=== PATIENT | male | born 1985 | race Caucasian/White ===

== ENCOUNTER 2020-12-03 13:02 | Emergency (ER) | payer SELFPAY ==
--- NOTE | 2020-12-03 14:36 | RAD REPORT ---
EXAM DESCRIPTION: RAD - Chest Single View - 12/03/2020 2:11 pm CLINICAL HISTORY: SOB COMPARISON: None TECHNIQUE: AP portable chest image was obtained 12/03/2020 2:11 pm . FINDINGS: No mass or consolidation identifiable. Interstitial markings are mildly prominent with the baseline for the patient is unknown. A mild interstitial edema or infiltrate cannot be excluded. The re are no COVID-19 specific findings. Heart and vasculature are normal. No measurable pleural effusion and no pneumothorax. No acute bony abnormality seen. No acute aortic findings suspected. IMPRESSION: Baseline examination showing no mass or consolidation. No COVID-19 specific chest findin gs. Interstitial markings are mildly prominent but could be simply baseline for the patient. A mild inter stitial edema or infiltrate cannot be excluded.
--- NOTE | 2020-12-03 16:06 | EDPHYS ---
Physician Documentation [facility] Name: Benjamín Navas Age: 35 yrs Sex: Male : 1985 Arrival Date: 12/03/2020 Time: 13:05 Bed Waiting Private MD: ED Physician Moose Grady Historical: - Allergies: 12/03 13:33 No Known Allergies; ss - Home Meds: 13:33 None [Active]; ss - PMHx: 13:33 None; ss - PSHx: 13:33 None; ss - Immunization history:: Client reports having NOT received the Covid vaccine. - Social history:: Smoking status: Patient denies any tobacco usage or history of. Vital Signs: 13:31 BP 135 / 85; Pulse 96; Resp 20; Temp 97.4(TE); Pulse Ox 99% on R/A; Weight 122.47 kg; ss Height 6 ft. 0 in. (182.88 cm); Pain 0/10; 13:31 Body Mass Index 36.62 (122.47 kg, 182.88 cm) ss MDM: 16:04 Patient medically screened. pm1 16:04 Data reviewed: vital signs. Data interpreted: Pulse oximetry: on room air is 99 %. pm1 Interpretation: normal. Counseling: I had a detailed discussion with the patient and/or guardian regarding: the historical points, exam findings, and any diagnostic results supporting the discharge/admit diagnosis, lab results, radiology results, the need for outpatient follow up, to return to the emergency department if symptoms worsen or persist or if there are any questions or concerns that arise at home. 12/03 13:34 Order name: Flu; Complete Time: 15:22 ss 12/03 13:34 Order name: XRAY Chest (1 view); Complete Time: 14:38 ss 12/03 15:56 Order name: SARS-COV-2 RT PCR; Complete Time: 15:58 EDMS Administered Medications: No medications were administered Disposition: 16:48 Co-signature as Attending PhysicianMoose I agree with the assessment and plan sp3 of care. Disposition Summary: 12/03/20 16:05 Discharge Ordered Location: Home pm1 Problem: new pm1 Symptoms: have improved pm1 Condition: Stable pm1 Diagnosis - Coronavirus infection, unspecified pm1 Followup: pm1 - With: Emergency Department - When: As needed - Reason: Worsening of condition Followup: pm1 - With: Private Physician - When: 2 - 3 days - Reason: Recheck today's complaints, Continuance of care, Re-evaluation by your physician Discharge Instructions: - Discharge Summary Sheet pm1 - COVID-19 pm1 Forms: - Medication Reconciliation Form pm1 - Thank You Letter pm1 - Antibiotic Education pm1 - Work release form pm1 - Prescription Opioid Use pm1 Signatures: Dispatcher [employer] EDMS Carmela Nguyen, RN RN ss Humberto Valente, KEELY FOREIGN LEGAL CONSULTANT pm1 Moose Grady sp3 Corrections: (The following items were deleted from the chart) 14:41 13:34 CORONAVIRUS+[email or web address] ordered. EDVA EDMS
--- NOTE | 2020-12-03 16:06 | ER ---
Nurse's Notes [facility] Name: Benjamín Navas Age: 35 yrs Sex: Male : 1985 Arrival Date: 12/03/2020 Time: 13:05 Bed Waiting Private MD: Diagnosis: Coronavirus infection, unspecified Presentation: 12/03 13:31 Chief complaint: Patient states: SOB and intermittent dizziness with decreased appetite ss that began 1 week ago. Coronavirus screen: Client denies travel out of the [place] in the last 14 days. Ebola Screen: Patient denies exposure to infectious person. Patient denies travel to an Ebola-affected area in the 21 days before illness onset. Initial Sepsis Screen: Does the patient meet any 2 criteria? HR > 90 bpm. Does the patient have a suspected source of infection? No. Patient's initial sepsis screen is negative. Risk Assessment: Do you want to hurt yourself or someone else? Patient reports no desire to harm self or others. Onset of symptoms was November 25, 2020. 13:31 Method Of Arrival: Ambulatory ss 13:31 Acuity: TAMIKA 4 ss Historical: - Allergies: 13:33 No Known Allergies; ss - Home Meds: 13:33 None [Active]; ss - PMHx: 13:33 None; ss - PSHx: 13:33 None; ss - Immunization history:: Client reports having NOT received the Covid vaccine. - Social history:: Smoking status: Patient denies any tobacco usage or history of. Vital Signs: 13:31 BP 135 / 85; Pulse 96; Resp 20; Temp 97.4(TE); Pulse Ox 99% on R/A; Weight 122.47 kg; ss Height 6 ft. 0 in. (182.88 cm); Pain 0/10; 13:31 Body Mass Index 36.62 (122.47 kg, 182.88 cm) ss ED Course: 13:05 Patient arrived in ED. ds1 13:32 Triage completed. ss 13:33 Arm band placed on left wrist. ss 13:38 Humberto Valente NP is PHCP. pm1 13:38 Moose Grady is Attending Physician. pm1 14:11 XRAY Chest (1 view) In Process Unspecified. EDMS Administered Medications: No medications were administered Outcome: 16:05 Discharge ordered by MD. pm1 16:19 Patient left the ED. hb Signatures: Dispatcher [employer] EDMO Jody Stone ds1 Carmela Nguyen RN RN ss Humberto Valente, KEELY TRACTOR OPERATOR pm1 Carey Bailon RN RN hb
[2020-12-03 16:51] VITALS: BP 135/85; TEMP 97.4; O2SAT 99
== END 2020-12-03 16:19 | disposition home or self-care (01) ==
LOC: ER 13:02
DX: U07.1 COVID-19 (principal)
CPT/HCPCS: 71045; 87804; 99282; U0003